=== PATIENT | female | born 1935 | race Hispanic/Latino ===

== ENCOUNTER 2017-03-13 12:23 | Observation (INO) | payer MEDICARE, MEDICAID ==
--- NOTE | 2017-03-13 13:04 | ED PDOC ---
Arrival/HPI - General Chief Complaint: Dizziness/Lightheaded Time Seen by Provider: 03/13/17 12:42 Historian: Family (Daughter) - History of Present Illness Narrative History of Present Illness (Text): 03/13/17 12:50 A 81 year old female, whose past medical history includes spinal stenosis, fibromyalgia, chronic back pain and baseline dementia, was brought into the emergency department by daughter complaining of worsening dizziness. Daughter reports patient called her this morning complaining of worsening back pain and dizziness. Daughter reports patient is more unsteady on her feet when ambulating and notes she is having difficulty finding her words. Daughter denies any loss of consciousness, fever, vomiting, chest pain or any other complaints. PMD: Dr. Hooper Time/Duration: Other (this morning) Symptom Course: Unchanged Quality: Other Context: Home Past Medical History - Provider Review Nursing Documentation Reviewed: Yes - Infectious Disease Hx of Infectious Diseases: None - Cardiac Hx Cardiac Disorders: Yes Hx Hypertension: Yes - Pulmonary Hx Respiratory Disorders: Yes (CHRONIC COUGH) - Neurological Hx Neurological Disorder: Yes (FIBROMYALGIA) HX Cerebrovascular Accident: Yes (Mild per family 2 years ago) Hx Dementia: Yes Hx Dizziness: Yes - HEENT Hx HEENT Disorder: Yes (uses glasses) - Renal Hx Renal Disorder: No - Endocrine/Metabolic Hx Endocrine Disorders: Yes Hx Hypothyroidism: Yes - Hematological/Oncological Hx Blood Disorders: No - Integumentary Hx Dermatological Disorder: No - Musculoskeletal/Rheumatological Hx Falls: Yes (unsteady on feet per family) - Gastrointestinal Hx Gastrointestinal Disorders: Yes Hx Diverticulitis: Yes Hx Gastroesophageal Reflux: Yes Other/Comment: intestinal blockage with surgery - Genitourinary/Gynecological Hx Genitourinary Disorders: No - Psychiatric Hx Psychophysiologic Disorder: Yes Hx Depression: Yes Hx Substance Use: No - Surgical History Hx Appendectomy: Yes Hx Cholecystectomy: Yes Hx Hysterectomy: Yes Other/Comment: Part of colon removed after blockage - Anesthesia Hx Anesthesia: Yes Hx Anesthesia Reactions: No Hx Malignant Hyperthermia: No - Suicidal Assessment Feels Threatened In Home Enviroment: No Family/Social History - Physician Review Nursing Documentation Reviewed: Yes Family/Social History: No Known Family HX Smoking Status: Former Smoker Hx Alcohol Use: No Hx Substance Use: No Allergies/Home Meds Allergies/Adverse Reactions: Allergies levofloxacin [From Levaquin] Allergy (Verified 09/27/16 18:40) RASH Penicillins Allergy (Verified 03/13/17 12:40) ITCHING aspirin Adverse Reaction (Verified 03/13/17 12:40) VOMITING Home Medications: Home Meds Medication Instructions Recorded Confirmed Pantoprazole Sodium [Protonix] 40 mg PO DAILY 01/01/15 03/13/17 Aspirin [Aspirin Chewable] 81 mg PO DAILY 09/27/16 03/13/17 Atorvastatin [Lipitor] 20 mg PO DAILY 09/27/16 03/13/17 Levothyroxine [Synthroid] 0.088 mg PO DAILY 09/27/16 03/13/17 Memantine [Namenda] 10 mg PO BID 09/27/16 03/13/17 Metoprolol Tartrate [Lopressor] 25 mg PO BID 09/27/16 03/13/17 Solifenacin Succinate [Vesicare] 5 mg PO DAILY 09/27/16 03/13/17 Carbidopa/Levodopa 1 each PO TID 03/13/17 03/13/17 [Carbidopa-Levodopa 25-100 Tab] Cholecalciferol (Vitamin D3) 1 cap PO DAILY 03/13/17 03/13/17 [Vitamin D3] Donepezil [Aricept] 10 mg PO DAILY 03/13/17 03/13/17 Review of Systems - Review of Systems Systems not reviewed;Unavailable: Dementia Physical Exam Vital Signs Reviewed: Yes Vital Signs Temp Pulse Resp BP Pulse Ox 03/13/17 15:59 97.8 F 56 L 18 130/51 L 97 03/13/17 14:00 58 L 18 129/80 97 03/13/17 12:41 97.9 F 55 L 19 144/78 97 Temperature: Afebrile Blood Pressure: Normal Pulse: Bradycardic Respiratory Rate: Normal Appearance: Positive for: Well-Appearing, Non-Toxic, Comfortable Pain Distress: None Mental Status: Positive for: other (Alert and oriented times person) Finger Stick Blood Glucose: 131 - Systems Exam Head: Present: Atraumatic, Normocephalic Pupils: Present: PERRL Extroacular Muscles: Present: EOMI Conjunctiva: Present: Normal Ears: Present: Normal, NORMAL TM, Normal Canal. No: Erythema, TM Bulging, Fluid , TM Perf Mouth: Present: Moist Mucous Membranes Pharnyx: No: ERYTHEMA, EXUDATE, TONSILS ENLARGED Neck: Present: Normal Range of Motion Respiratory/Chest: Present: Clear to Auscultation, Good Air Exchange. No: Respiratory Distress, Accessory Muscle Use Cardiovascular: Present: Regular Rate and Rhythm, Normal S1, S2. No: Murmurs Abdomen: Present: Normal Bowel Sounds. No: Tenderness, Distention, Peritoneal Signs Back: Present: Normal Inspection Upper Extremity: Present: Normal Inspection. No: Cyanosis, Edema Lower Extremity: Present: Normal Inspection. No: Edema Neurological: Present: GCS=15, CN II-XII Intact, Gait Normal (Unsteady Gait) Skin: Present: Warm, Dry, Normal Color. No: Rashes Psychiatric: Present: Alert. No: Oriented x 3 Medical Decision Making ED Course and Treatment: 03/13/17 12:50 Impression: A 81 year old female brought in by daughter for worsening dizziness. Daughter notes unsteady gait and difficulty finding words. Flucuates between AAOx1 and AAox0 Differential Diagnosis included but are not limited to: Rule out infection, Evaluated for CVA Plan: -- Head CT -- Chest xray -- EKG -- Labs -- Urinalysis -- Aspirin after CT negative for bleed, Meclizine -- Reassess and disposition Prior Visits: Notes and results from previous visits were reviewed. Patient last seen in the ED on 09/27/16 and hospitalized for chest pain. Progress Notes: EKG shows NSR at [address]-segment elevations, normal intervals. Interpreted by me. Report Date : 03/13/2017 13:57:50 PROCEDURE: CT HEAD WITHOUT CONTRAST. Dictator : Rogerio Solitario MD IMPRESSION: No intracranial mass, hemorrhage or evidence of acute infarct. Age- appropriate involutional change. Mild nonspecific right mastoid effusion. Report Date : 03/13/2017 14:01:59 Procedure: Chest xray Dictator : Cabrera Guallpa MD IMPRESSION: No active disease. 03/13/17 14:15 UA shows small leukocytes but otherwise normal. WBC WNL. UCx sent. Labs grossly normal. Case discussed with Dr. Wallace, covering for Dr. Hooper, who agrees with plan to admit patient to telemetry observation for persistent dizziness. Requesting neuro consult. Daughter Yoly Ferris can be reached at [phone] - Lab Interpretations Lab Results: 03/13/17 13:10 03/13/17 13:10 Lab Results 03/13/17 13:10: Sodium 139, Potassium 3.9, Chloride 100, Carbon Dioxide 29, Anion Gap 14, BUN 10, Creatinine 0.6, Est GFR ( Amer) > 60, Est GFR (Non- Af Amer) > 60, Random Glucose 109, Calcium 9.0, Phosphorus 3.8, Magnesium 1.6 L , Total Bilirubin 0.8, AST 20, ALT 16, Alkaline Phosphatase 76, Total Creatine Kinase 29 L, Troponin I < 0.01, Total Protein 6.6, Albumin 4.0, Globulin 2.6, Albumin/Globulin Ratio 1.5, Lipase 31 03/13/17 13:10: WBC 7.8, RBC 4.36, Hgb 13.5, Hct 40.2, MCV 92.2, MCH 31.0, MCHC 33.6, RDW 12.7, Plt Count 247, MPV 9.9, Gran % 47.3 L, Lymph % (Auto) 41.0 H, [place] % (Auto) 9.3 H, Eos % (Auto) 1.9, Baso % (Auto) 0.5, Gran # 3.66, Lymph # 3.2, [place] # 0.7 H, Eos # 0.2, Baso # 0.04 I have reviewed the lab results: Yes - RAD Interpretation Radiology Orders: 03/13/17 12:51 HEAD W/O CONTRAST [CT] Stat CHEST PORTABLE [RAD] Stat - Medication Orders Current Medication Orders: Discontinued Medications Aspirin (Aspirin Chewable) 324 mg PO STAT STA Stop: 03/13/17 14:16 Meclizine HCl (Antivert) 25 mg PO STAT STA Stop: 03/13/17 14:14 - Scribe Statement The provider has reviewed the documentation as recorded by the Mauro Parrish Provider Scribe Attestation: All medical record entries made by the Scribe were at my direction and personally dictated by me. I have reviewed the chart and agree that the record accurately reflects my personal performance of the history, physical exam, medical decision making, and the department course for this patient. I have also personally directed, reviewed, and agree with the discharge instructions and disposition. Disposition/Present on Arrival - Present on Arrival Any Indicators Present on Arrival: No History of DVT/PE: No History of Uncontrolled Diabetes: No Urinary Catheter: No History of Decub. Ulcer: No History Surgical Site Infection Following: None - Disposition Have Diagnosis and Disposition been Completed?: Yes Diagnosis: Dizziness, Dementia Disposition: HOSPITALIZED Disposition Time: 14:15 Patient Plan: Observation Condition: FAIR
[2017-03-13 13:35] LABS: BASO # 0.04 K/mm3 (0.0-2.0); BASO % 0.5 % (0.0-3.0); EOS # 0.2 (0.0-0.7); EOS % 1.9 % (1.5-5.0); GRAN # 3.66 (1.4-6.5); GRAN % 47.3 % (50.0-68.0); HEMOGLOBIN 13.5 g/dL (12.0-16.0); LYMPH # 3.2 (1.2-3.4); MEAN CELL VOLUME 92.2 fl (80.0-105.0); MEAN CORPUSCULAR HGB CONC 33.6 g/dl (31.0-37.0); MEAN PLATELET VOLUME 9.9 fl (7.0-11.0); MONO # 0.7 (0.1-0.6); MONO % 9.3 % (1.0-6.0); PLATELET COUNT 247 10^3/uL (120.0-450.0); RBC 4.36 10^6/uL (3.5-6.1); RED CELL DISTRIBUTION WIDTH 12.7 % (11.5-14.5); WHITE BLOOD COUNT 7.8 10^3/ul (4.5-11.0)
[2017-03-13 13:45] LABS: ALB/GLOB RATIO 1.5 (1.1-1.8); ALT/SGPT 16 U/L (7-56); AST/SGOT 20 U/L (15-39); BLOOD UREA NITROGEN 10 mg/dL (7-21); GFR AFRICAN-AMERICAN > 60; GFR NON-AFRICAN AMERICAN > 60; LIPASE 31 U/L (23-300); MAGNESIUM 1.6 mg/dL (1.7-2.2)
[2017-03-13 13:54] LABS: TROPONIN I < 0.01 ng/mL
--- NOTE | 2017-03-13 13:59 | CT ---
PROCEDURE: CT HEAD WITHOUT CONTRAST. HISTORY: dizziness COMPARISON: None available. TECHNIQUE: Axial computed tomography images were obtained through the head/brain without intravenous contrast. Radiation dose: Total exam DLP = 700.93 mGy-cm. This CT exam was performed using one or more of the following dose reduction techniques: Automated exposure control, adjustment of the mA and/or kV according to patient size, and/or use of iterative reconstruction technique. FINDINGS: HEMORRHAGE: No intracranial hemorrhage. BRAIN: No mass effect or edema. Mild age-appropriate diffuse cerebral atrophy. Moderate periventricular white matter lucency with patchy and confluent deep and subcortical white matter lucency bilaterally, consistent with age related microvascular ischemic change. No evidence of acute infarct. VENTRICLES: Unremarkable. No hydrocephalus. CALVARIUM: Unremarkable. PARANASAL SINUSES: Unremarkable as visualized. No significant inflammatory changes. MASTOID AIR CELLS: Mild right mastoid effusion, nonspecific. OTHER FINDINGS: None. IMPRESSION: No intracranial mass, hemorrhage or evidence of acute infarct. Age-appropriate involutional change. Mild nonspecific right mastoid effusion.
--- NOTE | 2017-03-13 14:04 | RAD ---
HISTORY: back pain COMPARISON: 09/27/2016 FINDINGS: LUNGS: No active pulmonary disease. PLEURA: No significant pleural effusion identified, no pneumothorax apparent. CARDIOVASCULAR: Normal. OSSEOUS STRUCTURES: No significant abnormalities. VISUALIZED UPPER ABDOMEN: Normal. OTHER FINDINGS: None. IMPRESSION: No active disease.
[2017-03-13 15:52] LABS: URINE BILIRUBIN NEGATIVE (NEGATIVE); URINE BLOOD NEGATIVE (NEGATIVE); URINE GLUCOSE (UA) NEGATIVE (NEGATIVE); URINE LEUKOCYTE ESTERASE SMALL Leu/uL (NEGATIVE); URINE NITRATE NEGATIVE (NEGATIVE); URINE PROTEIN NEGATIVE mg/dL (<30 mg/dL); URINE UROBILINOGEN 0.2 E.U./dL (<1 E.U./dL)
[2017-03-13 15:56] LABS: URINE APPEARANCE SL CLOUDY (CLEAR); URINE COLOR YELLOW (YELLOW)
[2017-03-13 16:03] LABS: URINE EPITHELIAL CELLS 0 - 2 /hpf (0-5); URINE RBC NEGATIVE /hpf (0-2); URINE WBC 0 - 2 /hpf (0-6)
--- NOTE | 2017-03-13 16:22 | CARD ---
APPROVED REPORT EKG Measurement Heart [id number] <Conclusion> Normal sinus rhythm Normal ECG
[2017-03-13] MEDS: Magnesium Oxide 400 mg Tab UD PO SCH (17:46)
--- NOTE | 2017-03-13 18:58 | CON ---
CHIEF COMPLAINT: Dizziness. HISTORY OF PRESENT ILLNESS: This is an 81-year-old woman with history of spinal stenosis with history of parkinsonism diagnosed by Dr. Antonina Root back in September of 2016 and placed on Sinemet 25/100 p.o. t.i.d., history of an EEG done in September of 2016 which was normal, history of an MRI done on 09/29/2016, which showed no acute cranial abnormality, just chronic ischemic changes, history of chronic back pain, and dementia on Aricept and Namenda, was brought in because the patient was complaining of dizziness in terms of spinning sensation of room, especially when getting from a sitting to standing position as well as turning her head in right or left direction. Her dizziness is much less today since she has been stabilized in the ER. Her CAT scan of the head showed no acute intracranial abnormality. She is unsteady on her feet with some parkinsonism features and does have difficulty in ambulating at times. She definitely has poor attention and slow thought process, does not know the month or year, knows the president of [facility] but cannot recall his name. REVIEW OF SYSTEMS: A 14-point review of systems is negative except as per the HPI. ALLERGIES: LEVOFLOXACIN, PENICILLIN, AND ASPIRIN. MEDICATIONS: Reviewed by the nurse per reconciliation sheet. PAST MEDICAL HISTORY: Parkinsonism diagnosed in September 2016, on Sinemet; chronic back pain; dementia; hypertension. FAMILY HISTORY: Noncontributory. SOCIAL HISTORY: No illicit drug use, smoking, or EtOH abuse. PHYSICAL EXAMINATION: VITAL SIGNS: Temperature of 97.8, pulse rate 56, blood pressure of 130/51, respiratory rate of 18, oxygen saturation 97% via room air. GENERAL: The patient is sitting up in bed, in no acute distress. HEENT: Head is atraumatic and normocephalic. PERRLA. Extraocular muscles intact. NECK: Supple. No JVD. No adenopathy noted. LUNGS: Clear to auscultation. No adventitious sounds. HEART: S1 and S2, normal rate and rhythm. No murmurs, rubs, or gallops. ABDOMEN: Soft, nontender, nondistended. Bowel sounds present. EXTREMITIES: No clubbing, no cyanosis. Peripheral pulses 2+ felt bilaterally. NEUROLOGIC: The patient has a flat affect, is alert, oriented to person and place, not much to month or year. Recall after 5 minutes is 0 out of 3. Poor attention span, slow thought process. Cranial nerves II through XII intact. Motor exam: Has increased tone throughout. Very, very limited cogwheel of the left wrist compared to the right. Sensory exam: Light touch, pinprick, proprioception, vibration intact. DTRs are 1+ throughout and absent at the ankles. Coordination: [id number] intact. Gait is deferred for now. LABORATORY DATA: Sodium is 139, potassium 3.9, chloride of 100, carbon dioxide of 29, BUN of 10, creatinine 0.6, random glucose of 109. ASSESSMENT AND PLAN: This is an 81-year-old with history of hypothyroidism, history of hypertension, history of depression, history of unsteady gait, history of parkinsonism diagnosed in September 2016, with history of an MRI brain done in September 2016, which showed no acute intracranial abnormality, just chronic ischemic changes, history of chronic back pain and dementia, came with dizziness, dizziness feels combination of lightheadedness with a component of spinning sensation of the room. Her dizziness seems more like a positional vertigo superimposed on underlying deconditioned state from parkinsonism. At this time, recommend: 1. Adequate hydration throughout the day. 2. Keep systolic blood pressure above 130. 3. Monitor electrolytes and replace accordingly. 4. PT therapy to assess her gait as well as possible vestibular therapy for positional vertigo. 5. Continue current present medical management. 6. Continue with her underlying Sinemet 1 tab p.o. t.i.d. 25/100 for underling parkinsonism and continue with the Aricept and Namenda for underlying dementia Parkinson's type. At this time, she is on aspirin and Lipitor for stroke prevention and continue on current present medical management. She is neurologically stable. Thank you for this consult. Tenzin Hammond MD
[2017-03-13 22:20] VITALS: BMI 40.3
[2017-03-13] MEDS ORDERED: Pneumococcal 23-Valent Vaccine IM ONE (22:20)
[2017-03-14 01:07] VITALS: RESP 20
[2017-03-14] MEDS ORDERED: Pantoprazole 40 mg EC Tab PO SCH (07:30)
[2017-03-14 08:13] VITALS: BP 172/64; TEMP 98; O2SAT 94
[2017-03-14] MEDS: Magnesium Oxide 400 mg Tab UD PO SCH (09:07)
[2017-03-14] MEDS ORDERED: Levothyroxine 88 MCG TAB PO SCH (10:00)
[2017-03-14 14:37] VITALS: PULSE 48
--- NOTE | 2017-03-15 07:14 | HP ---
CHIEF COMPLAINT AND HISTORY OF PRESENT ILLNESS: This is an 81-year-old female who is coming into the hospital with complaints of dizziness. The patient had a history of spinal stenosis, fibromyalgia, chronic back pain. She was brought in by her daughter. The patient denies any loss of consciousness, she did have difficulty with remembering, her dementia is severe according to the daughter. She has no fevers or chills. She is able to walk to the bathroom with some assistants. She does not remember why she is in the hospital. She does not know the date. REVIEW OF SYSTEMS: All review of systems are within normal limits, except what was mentioned. ALLERGIES: LEVAQUIN, PENICILLIN AND *------*. HOME MEDICATIONS: Protonix, aspirin, Lipitor, Synthroid, Namenda, Lopressor, VESIcare, carbidopa, levodopa, vitamin D3, and Aricept. PAST MEDICAL HISTORY: *------* hypothyroidism, DJD, with herniated disc in back, dementia Alzheimer's type, diverticulosis, hypertension, hypothyroidism, dyslipidemia and chronic cough. PAST SURGICAL HISTORY: 1. Cholecystectomy. 2. Total abdominal hysterectomy and salpingo-oophorectomy. 3. Appendectomy. 4. Bowel obstruction with adhesiolysis. SOCIAL HISTORY: The patient does not smoke or drink. She lives with her daughter. FAMILY HISTORY: Noncontributory. PHYSICAL EXAMINATION: VITAL SIGNS: Temperature of 97.8, pulse 56, blood pressure is 130/61 and respiratory rate of 18. GENERAL: The patient lying in bed, uncomfortable, and in no acute distress. HEENT: Atraumatic and normocephalic. Anicteric sclerae. Moist mucosa. [place] conjunctivae. No oral lesions. NECK: No JVD, anterior and posterior adenopathy, thyromegaly, or bruits. CARDIOVASCULAR: S1 and S2 regular. No murmur, rubs, or gallop. LUNGS: Clear to auscultation bilaterally. No wheezes, rales, or rhonchi. ABDOMEN: Bowel sounds are positive. Soft, nontender and nondistended. No hepatosplenomegaly. No rebound and no guarding. EXTREMITIES: No cyanosis, clubbing, or edema. NEUROLOGIC: No facial asymmetry. Tongue is midline. No vulva deviation. Power is 5/5 upper extremity and lower extremity. Sensation intact in upper extremity and lower extremity. PSYCHIATRIC: She is awake, alert and oriented x1. Poor insight. Normal affect. GENITOURINARY: No CVA tenderness. VASCULAR: 2+ pulses in the carotid pulses and pedal pulses. SKIN: No erythema or nodules. SPINE: Shows normal curvature. EXTREMITIES: No cyanosis and clubbing, no edema. LABORATORY DATA: White count is 7.8 and hemoglobin 13.5. Sodium is 139, potassium is 3.9. Troponin is 0.01. Urine shows; nitrates are negative, bilirubin is negative and ketones are negative. CT of the head done shows no intracranial mass. Mild nonspecific right mastoid effusion. Chest x-ray is no active disease. ASSESSMENT: 1. Dizziness, resolved. 2. Hypertension. 3. Dementia Alzheimer's type. 4. Hypothyroidism. 5. Dyslipidemia. PLAN: The patient is currently comfortable. She was admitted for further evaluation, she was seen by Dr. Hammond, he had okayed for her to be discharged. The patient was given aspirin and Antivert. The patient is on a heart-healthy diet. I did speak to the patient's daughter at length to give her an update on the patient's diagnosis and plan of care. The patient is on Sinemet as well, this will be continued. The patient had EKG that shows normal sinus rhythm with a heart rate of 62. CONDITION: Stable. ACTIVITY: Increased as tolerated. Followup with primary care doctor in 1 to 2 weeks and also followup with the neurology. Tommie Wallace MD
== END 2017-03-14 16:32 | disposition home or self-care (01) ==
LOC: ED 12:23 → ERH 14:14 → 3RNO 16:30
PROVIDERS: ADMIT Internal Medicine Nephrology; ATTEND Internal Medicine Nephrology
DX: R42 Dizziness and giddiness (principal); M79.7 Fibromyalgia; M48.00 Spinal stenosis, site unspecified; G89.29 Other chronic pain; I10 Essential (primary) hypertension; F02.80 Dementia in other diseases classified elsewhere, unspecified severity, without behavioral disturbance, psychotic disturbance, mood disturbance, and anxiety; G30.9 Alzheimer's disease, unspecified; E78.5 Hyperlipidemia, unspecified; E03.9 Hypothyroidism, unspecified; G20 Parkinson's disease; R26.2 Difficulty in walking, not elsewhere classified; Z90.710 Acquired absence of both cervix and uterus; Z90.49 Acquired absence of other specified parts of digestive tract
CPT/HCPCS: 70450; 71010; 80053; 81001; 82550; 83690; 83735; 84100; 84484; 85025; 87086; 93005; 99285; G0378

== ENCOUNTER 2018-02-12 15:39 | Inpatient (IN) | payer MEDICARE, MEDICAID ==
[2018-02-12 16:19] VITALS: BMI 36.1
--- NOTE | 2018-02-12 17:19 | ED PDOC ---
Arrival/HPI - General Chief Complaint: Altered Mental Status Time Seen by Provider: 02/12/18 16:23 Historian: Patient, Other (daughter) - History of Present Illness Narrative History of Present Illness (Text): 02/12/18 17:16 Patient is an 82 yo female past medical history of dementia as well as parkinson 's presents to the Emergency Department with history of "deterioration" in her mental status "since October". Daughter is with patient at bedside and provides history. She described that the patient appears "shakier" over past several months. She also described that the patient has not been ambulating very well and is more bedbound and requires more assistance to ambulate. Daughter also states that she appears to be urinating more frequently and has been at times incontinent over the past week. No noted fevers. No vomiting. No expression of pain. No injury or trauma noted or reported. Patient last night "was found laying on the ground". Daughter states that she did not appear injured although "was too weak to get up" and had to be pulled back up. No known loss of conciousness, daughter believes she was only on ground for "10-15 minutes". 02/12/18 22:01 Past Medical History - Infectious Disease Hx of Infectious Diseases: None - Cardiac Hx Cardiac Disorders: Yes (mi) Hx Hypertension: Yes - Pulmonary Hx Respiratory Disorders: Yes (CHRONIC COUGH) - Neurological Hx Neurological Disorder: Yes (FIBROMYALGIA) HX Cerebrovascular Accident: Yes (Mild per family 2 years ago) Hx Dementia: Yes (forgetful) Hx Dizziness: Yes - HEENT Hx HEENT Disorder: Yes (uses glasses) - Renal Hx Renal Disorder: No - Endocrine/Metabolic Hx Endocrine Disorders: Yes Hx Hypothyroidism: Yes - Hematological/Oncological Hx Blood Disorders: No - Integumentary Hx Dermatological Disorder: No - Musculoskeletal/Rheumatological Hx Musculoskeletal Disorders: Yes Hx Falls: Yes (past) - Gastrointestinal Hx Gastrointestinal Disorders: Yes Hx Diverticulitis: Yes Hx Gastroesophageal Reflux: Yes Other/Comment: intestinal blockage with surgery, part of colon removed - Genitourinary/Gynecological Hx Genitourinary Disorders: No - Psychiatric Hx Psychophysiologic Disorder: Yes Hx Depression: Yes Hx Substance Use: No - Surgical History Hx Appendectomy: Yes Hx Cholecystectomy: Yes Hx Hysterectomy: Yes Other/Comment: Part of colon removed after blockage - Anesthesia Hx Anesthesia: Yes Hx Anesthesia Reactions: No Hx Malignant Hyperthermia: No - Suicidal Assessment Feels Threatened In Home Enviroment: No Family/Social History Family/Social History: Unknown Family HX Smoking Status: Former Smoker Hx Alcohol Use: No Hx Substance Use: No Allergies/Home Meds Allergies/Adverse Reactions: Allergies levofloxacin [From Levaquin] Allergy (Verified 02/12/18 16:18) RASH Penicillins Allergy (Verified 02/12/18 16:18) ITCHING aspirin Adverse Reaction (Verified 02/12/18 16:18) VOMITING Home Medications: Home Meds Medication Instructions Recorded Confirmed Aspirin [Aspirin Chewable] 81 mg PO DAILY 09/27/16 02/12/18 Atorvastatin [Lipitor] 20 mg PO DAILY 09/27/16 02/12/18 Levothyroxine [Synthroid] 0.088 mg PO DAILY 09/27/16 02/12/18 Memantine [Namenda] 10 mg PO BID 09/27/16 02/12/18 Metoprolol Tartrate [Lopressor] 25 mg PO BID 09/27/16 02/12/18 Solifenacin Succinate [Vesicare] 5 mg PO DAILY 09/27/16 02/12/18 Carbidopa/Levodopa 1 each PO TID 03/13/17 02/12/18 [Carbidopa-Levodopa 25-100 Tab] Donepezil [Aricept] 10 mg PO DAILY 03/13/17 02/12/18 Melatonin 10 mg PO HS 02/12/18 02/12/18 Review of Systems - Review of Systems Systems not reviewed;Unavailable: Dementia Constitutional: absent: Fevers Eyes: absent: Vision Changes Respiratory: absent: SOB Cardiovascular: absent: Chest Pain Gastrointestinal: absent: Abdominal Pain Genitourinary Female: Frequency. absent: Hematuria Musculoskeletal: Back Pain Skin: absent: Rash Neurological: Other (tremors). absent: Focal Weakness Hemo/Lymphatic: absent: Easy Bleeding Physical Exam Vital Signs Reviewed: Yes Vital Signs Temp Pulse Resp BP Pulse Ox 02/12/18 21:23 66 148/81 02/12/18 21:11 62 18 139/63 97 02/12/18 18:29 57 L 17 97 02/12/18 16:12 98.1 F 55 L 19 130/47 L 95 Temperature: Afebrile Appearance: Positive for: Non-Toxic Mental Status: Positive for: Confused - Systems Exam Head: Present: Atraumatic Extroacular Muscles: Present: EOMI Mouth: Present: Dry Pharnyx: No: ERYTHEMA Neck: No: Meningeal Signs Respiratory/Chest: Present: Clear to Auscultation. No: Respiratory Distress Cardiovascular: Present: Murmurs, Bradycardic Abdomen: No: Tenderness Back: Present: Paraspinal Tenderness Upper Extremity: No: Edema Lower Extremity: Present: Neurovascularly Intact, Other (no pain with range of motion of hip, knee and ankle). No: Edema Neurological: Present: Other (no slurred speech, moves all four extremities with equal strength). No: Memory Normal Skin: Present: Warm Psychiatric: Present: Alert. No: Normal Insight, Normal Concentration Medical Decision Making ED Course and Treatment: Patient's history supplemented by daughter. She reports gradual deterioration in mental status and activity level "since October". Yesterday patient was found laying on the floor. Currently no signs of unstable trauma noted. No respiratory distress. Current exam NOT consistent with sepsis. UA unremarkable. Abdomen soft and nontender. Rectal exam no bleeding or melena. Vital signs stable. Bradycardic, although no chest pain or sob and stable BP. 02/12/2018 17:24 Chest X-ray IMPRESSION: No active disease. Dictator: Daryl Simpson MD 02/12/18 22:05 Given deterioration in mental status, possible syncope yesterday, will admit to remote telemetry for monitoring and serial exams. Daughter updated with treatment plan. Patient accepted by Dr. Roby Wallace to his service. 02/12/18 22:52 CT reading reviewed. Patient with no facial bony tenderness, patient with no mastoid tenderness. No ear canal edema or drainage noted. EXAM: CT Head Without Intravenous Contrast Dictated and Authenticated by: Gabe Diehl MD 02/12/2018 10:12 PM IMPRESSION: No evidence of acute intracranial hemorrhage. Opacification of the right mastoids. Partial opacification of the left mastoids. Correlate for mastoiditis. - Lab Interpretations Microbiology Results: Microbiology Results 02/12/18 20:15 Urine Urine Culture - Final No Growth (<1,000 CFU/ML) Lab Results: 02/12/18 17:12 02/12/18 17:12 Lab Results 02/12/18 20:15: Urine Color Yellow, Urine Appearance Clear, Urine pH 6.0, Ur Specific [place] 1.015, Urine Protein Negative, Urine Glucose (UA) Negative, Urine Ketones Negative, Urine Blood Negative, Urine Nitrate Negative, Urine Bilirubin Negative, Urine Urobilinogen 0.2, Ur Leukocyte Esterase Trace H, Urine RBC Negative, Urine WBC 0 - 2, Ur Epithelial Cells 0 - 2, Urine Bacteria None, Hyaline Casts 0 - 2 02/12/18 17:12: Sodium 136, Potassium 4.5, Chloride 98, Carbon Dioxide 27, Anion Gap 16, BUN 16, Creatinine 0.7, Est GFR ( Amer) > 60, Est GFR (Non- Af Amer) > 60, Random Glucose 112 H, Calcium 9.1, Total Bilirubin 0.6, AST 17, ALT 22, Alkaline Phosphatase 90, Lactate Dehydrogenase 404, Total Creatine Kinase < 20 L, Troponin I < 0.01, Total Protein 6.6, Albumin 3.8, Globulin 2.8, Albumin/Globulin Ratio 1.3 02/12/18 17:12: PT 12.9 H, INR 1.13 H, APTT 30.1 02/12/18 17:12: WBC 9.3, RBC 4.43, Hgb 13.9, Hct 40.5, MCV 91.4, MCH 31.4, MCHC 34.3, RDW 12.7, Plt Count 317, MPV 9.2, Gran % 58.3, Lymph % (Auto) 28.2, [place] % (Auto) 10.5 H, Eos % (Auto) 2.7, Baso % (Auto) 0.3, Gran # 5.40, Lymph # (Auto ) 2.6, [place] # (Auto) 1.0 H, Eos # (Auto) 0.3, Baso # (Auto) 0.03 02/12/18 16:28: POC Glucose (mg/dL) 145 H - RAD Interpretation Radiology Orders: 02/12/18 16:48 CHEST PORTABLE [RAD] Stat 02/12/18 20:06 HEAD W/O CONTRAST [CT] Stat - EKG Interpretation EKG Interpretation (Text): EKG at 16:31 sinus bradycardia rate of 54 Interpreted by ED Physician: Yes Type: 12 lead EKG - Medication Orders Current Medication Orders: Discontinued Medications Alprazolam (Xanax) 0.5 mg PO Q6H PRN; Protocol PRN Reason: Anxiety Last Admin: 02/14/18 09:43 Dose: 0.5 mg Behavioural Document 02/14/18 09:43 NEETU (Rec: 02/14/18 09:43 [facility]) Maintenance Maintenance Dose Yes Nonmedicinal Nonmedicinal Interventions Redirect Therapeutic Communication Behavior Behavior for Medication: Anxiety Re-Assess: Reassess Psych Meds Document 02/14/18 10:43 NEETU (Rec: 02/14/18 11:11 TESHASV PURCHASING2) Reassess Psych Med Effective Aspirin (Aspirin Chewable) 81 mg PO DAILY [facility] Last Admin: 02/15/18 09:30 Dose: 81 mg Atorvastatin Calcium (Lipitor) 20 mg PO HS [facility] Last Admin: 02/14/18 22:03 Dose: 20 mg Carbidopa/Levodopa (Sinemet) 1 tab PO TID [facility] Last Admin: 02/15/18 14:16 Dose: 1 tab Donepezil HCl (Aricept) 10 mg PO DAILY [facility] Last Admin: 02/15/18 09:30 Dose: 10 mg Enoxaparin Sodium (Lovenox) 40 mg SC DAILY [facility] PRN Reason: Protocol Last Admin: 02/15/18 09:31 Dose: 40 mg Subcutaneous Administrations Document 02/15/18 09:31 NEETU (Rec: 02/15/18 09:31 [facility]) Injection Site MAR Injection Site Right Abdomen Charges for Administration # of Subcutaneous Administrations 1 Levothyroxine Sodium (Synthroid) 88 mcg PO DAILY [facility] Last Admin: 02/15/18 09:30 Dose: 88 mcg Memantine (Namenda) 10 mg PO BID [facility] Last Admin: 02/15/18 09:31 Dose: 10 mg Metoprolol Tartrate (Lopressor) 25 mg PO BID [facility] Last Admin: 02/15/18 09:31 Dose: 25 mg MAR Pulse and Blood Pressure Document 02/15/18 09:31 NEETU (Rec: 02/15/18 09:31 [facility] Pulse Pulse Rate (60-90) 60 Blood Pressure Blood Pressure (100/60-150/90) 144/68 Polyethylene Glycol (Miralax) 17 gm PO DAILY [facility] Last Admin: 02/15/18 09:31 Dose: 17 gm Pramipexole Dihydrochloride (Mirapex) 0.5 mg PO DAILY [facility] Last Admin: 02/15/18 09:30 Dose: 0.5 mg Disposition/Present on Arrival - Present on Arrival Any Indicators Present on Arrival: No History of DVT/PE: No History of Uncontrolled Diabetes: No Urinary Catheter: No History of Decub. Ulcer: No History Surgical Site Infection Following: None - Disposition Have Diagnosis and Disposition been Completed?: Yes Diagnosis: Dementia, Near syncope Disposition: HOSPITALIZED Disposition Time: 20:00 Patient Plan: Admission, Telemetry Condition: FAIR
--- NOTE | 2018-02-12 17:25 | RAD ---
Date of service: 02/12/2018 HISTORY: ams COMPARISON: Chest radiograph dated 03/13/2017. FINDINGS: LUNGS: No active pulmonary disease. PLEURA: No significant pleural effusion identified, no pneumothorax apparent. CARDIOVASCULAR: Atherosclerotic aortic calcifications. Cardiomediastinal silhouette stably prominent. OSSEOUS STRUCTURES: Unchanged. VISUALIZED UPPER ABDOMEN: Right upper quadrant surgical clips. OTHER FINDINGS: None. IMPRESSION: No active disease.
[2018-02-12 17:29] LABS: BASO # 0.03 K/mm3 (0.0-2.0); BASO % 0.3 % (0.0-3.0); EOS # 0.3 (0.0-0.7); EOS % 2.7 % (1.5-5.0); GRAN # 5.4 (1.4-6.5); GRAN % 58.3 % (50.0-68.0); HEMOGLOBIN 13.9 g/dL (12.0-16.0); LYMPH # 2.6 (1.2-3.4); LYMPH % 28.2 % (22.0-35.0); MEAN CELL VOLUME 91.4 fl (80.0-105.0); MEAN CORPUSCULAR HEMOGLOBIN 31.4 pg (25.0-35.0); MEAN CORPUSCULAR HGB CONC 34.3 g/dl (31.0-37.0); MEAN PLATELET VOLUME 9.2 fl (7.0-11.0); MONO % 10.5 % (1.0-6.0); RBC 4.43 10^6/uL (3.5-6.1); RED CELL DISTRIBUTION WIDTH 12.7 % (11.5-14.5); WHITE BLOOD COUNT 9.3 10^3/ul (4.5-11.0)
[2018-02-12 17:43] LABS: INR 1.13 (0.93-1.08); PARTIAL THROMBOPLASTIN TIME 30.1 Seconds (25.1-36.5); PROTHROMBIN TIME 12.9 SECONDS (9.4-12.5)
[2018-02-12 17:50] LABS: ALB/GLOB RATIO 1.3 (1.1-1.8); ALBUMIN 3.8 g/dL (3.0-4.8); ALT/SGPT 22 U/L (7-56); AST/SGOT 17 U/L (14-36); BLOOD UREA NITROGEN 16 mg/dL (7-21); CALCIUM 9.1 mg/dL (8.4-10.5); GFR AFRICAN-AMERICAN > 60; GFR NON-AFRICAN AMERICAN > 60
[2018-02-12 17:59] LABS: TROPONIN I < 0.01 ng/mL
[2018-02-12 20:21] LABS: URINE BILIRUBIN NEGATIVE (NEGATIVE); URINE BLOOD NEGATIVE (NEGATIVE); URINE GLUCOSE (UA) NEGATIVE (NEGATIVE); URINE LEUKOCYTE ESTERASE TRACE Leu/uL (NEGATIVE); URINE PROTEIN NEGATIVE mg/dL (<30 mg/dL); URINE UROBILINOGEN 0.2 E.U./dL (<1 E.U./dL)
[2018-02-12 20:24] LABS: URINE COLOR YELLOW (YELLOW)
[2018-02-12 20:25] LABS: URINE APPEARANCE CLEAR (CLEAR)
[2018-02-12 20:38] LABS: URINE EPITHELIAL CELLS 0 - 2 /hpf (0-5); URINE RBC NEGATIVE /hpf (0-2); URINE WBC 0 - 2 /hpf (0-6)
[2018-02-12 20:39] LABS: URINE HYALINE CAST 0 - 2 /hpf
--- NOTE | 2018-02-12 22:08 | CARD ---
APPROVED REPORT Date of service: 02/12/2018 EKG Measurement Heart [id number] <Conclusion> Sinus bradycardia Otherwise normal ECG
--- NOTE | 2018-02-13 07:30 | CT ---
Date of service: 02/12/2018 PROCEDURE: CT HEAD WITHOUT CONTRAST. HISTORY: ams COMPARISON: 03/13/17 TECHNIQUE: Axial computed tomography images were obtained through the head/brain without intravenous contrast. Radiation dose: Total exam DLP = mGy-cm. This CT exam was performed using one or more of the following dose reduction techniques: Automated exposure control, adjustment of the mA and/or kV according to patient size, and/or use of iterative reconstruction technique. FINDINGS: HEMORRHAGE: No intracranial hemorrhage. BRAIN: No mass effect or edema. Extensive chronic periventricular white matter ischemic disease. VENTRICLES: Unremarkable. No hydrocephalus. CALVARIUM: Unremarkable. PARANASAL SINUSES: Unremarkable as visualized. No significant inflammatory changes. MASTOID AIR CELLS: Unremarkable as visualized. No inflammatory changes. OTHER FINDINGS: None. IMPRESSION: No intracranial hemorrhage.
[2018-02-13] MEDS: Levothyroxine 88 MCG TAB PO SCH (09:29)
--- NOTE | 2018-02-13 10:13 | CP.PCM.HP ---
<Leonel French - Last Filed: 02/13/18 10:04> History of Present Illness - History of Present Illness History of Present Illness: Medicine H&P for Dr. Wallace's service - Leanna French PGY3 HPI: Patient is a 82yo female with past medical history of alzheimers dementia, parkinsons, DJD, diverticulosis, hypertension, hypothyroidism and dyslipidemia that presented to [facility] accompanied by her daughter with reports of more profound weakness, difficulty ambulating/bed-bound, and inability to perform her activities of daily living. Per patients daughter, she has required more assistance and has been incontinent. There were no reports of trauma/injury or loss of consciousness. She reports of fevers, chills, nausea, vomiting, chest pain, palpitations, SOB, abdominal pain. 12point ROS as per above otherwise negative PMH: as stated above PSH: cholecystectomy Allergies: levofloxacin, penicillin, aspirin Family Hx: Non-contributory Social Hx: denies tobacco, alcohol and illicit drug use Present on Admission - Present on Admission Any Indicators Present on Admission: No Past Patient History - Infectious Disease Hx of Infectious Diseases: None - Past Social History Smoking Status: Former Smoker - CARDIAC Hx Cardiac Disorders: Yes (mi) Hx Hypertension: Yes - PULMONARY Hx Respiratory Disorders: Yes (CHRONIC COUGH) - NEUROLOGICAL Hx Neurological Disorder: Yes (FIBROMYALGIA) HX Cerebrovascular Accident: Yes (Mild per family 2 years ago) Hx Dementia: Yes (forgetful) Hx Dizziness: Yes - HEENT Hx HEENT Problems: Yes (uses glasses) - RENAL Hx Chronic Kidney Disease: No - ENDOCRINE/METABOLIC Hx Endocrine Disorders: Yes Hx Hypothyroidism: Yes - HEMATOLOGICAL/ONCOLOGICAL Hx Blood Disorders: No - INTEGUMENTARY Hx Dermatological Problems: No - MUSCULOSKELETAL/RHEUMATOLOGICAL Hx Musculoskeletal Disorders: Yes Hx Falls: Yes (past) - GASTROINTESTINAL Hx Gastrointestinal Disorders: Yes Hx Diverticulitis: Yes Hx Gastroesophageal Reflux: Yes Other/Comment: intestinal blockage with surgery, part of colon removed - GENITOURINARY/GYNECOLOGICAL Hx Genitourinary Disorders: No - PSYCHIATRIC Hx Psychophysiologic Disorder: Yes Hx Depression: Yes Hx Substance Use: No - SURGICAL HISTORY Hx Appendectomy: Yes Hx Cholecystectomy: Yes Hx Hysterectomy: Yes Other/Comment: Part of colon removed after blockage - ANESTHESIA Hx Anesthesia: Yes Hx Anesthesia Reactions: No Hx Malignant Hyperthermia: No Meds Allergies/Adverse Reactions: Allergies Allergy/AdvReac Type Severity Reaction Status Date / Time levofloxacin [From Levaquin] Allergy RASH Verified 02/12/18 16:18 Penicillins Allergy ITCHING Verified 02/12/18 16:18 aspirin AdvReac VOMITING Verified 02/12/18 16:18 Physical Exam - Constitutional Appears: No Acute Distress, Confused - Head Exam Head Exam: ATRAUMATIC, NORMAL INSPECTION, NORMOCEPHALIC - Eye Exam Eye Exam: EOMI, PERRL - ENT Exam ENT Exam: Mucous Membranes Moist - Neck Exam Neck exam: Positive for: Normal Inspection - Respiratory Exam Respiratory Exam: Clear to Auscultation Bilateral. absent: Rales, Rhonchi, Wheezes - Cardiovascular Exam Cardiovascular Exam: +S1, +S2. absent: Gallop, JVD, Rubs - GI/Abdominal Exam GI & Abdominal Exam: Soft. absent: Distended, Firm, Guarding, Rebound, Tenderness - Extremities Exam Extremities exam: Positive for: normal inspection - Neurological Exam Neurological exam: Alert Additional comments: oriented only to person - Psychiatric Exam Psychiatric exam: Normal Affect, Normal Mood - Skin Skin Exam: Dry, Intact, Normal Color, Warm Results - Vital Signs Recent Vital Signs: Last Vital Signs Temp 98 F 02/13/18 07:40 Pulse 56 L 02/13/18 09:29 Resp 20 02/13/18 07:40 BP 152/78 H 02/13/18 09:29 Pulse Ox 98 02/13/18 07:40 - Labs Result Diagrams: 02/12/18 17:12 02/12/18 17:12 Assessment & Plan - Assessment and Plan (Free Text) Plan: 82yo female with history of dementia, parkinsons, DJD, hypothyroidism, dyslipidemia presents for weakness, difficulty ambulating, incontinence 1. Alzheimers dementia 2. Parkinsons 3. DJD 4. Dyslipidemia 5. Hypothyroidism -Events at home discussed between her daughter, Erica and Dr. Wallace -Neurology was consulted for evaluation - Dr. Hammond -CT Head was reviewed which revealed opacification of the right and partial left mastoid -CXR revealed no active disease; EKG showed sinus bradycardia with no acute ST- T wave changes -Patient is afebrile, no leukocytosis; UA is negative however cultures are pending -She is on sinemet for parkinsons, memantine for dementia, synthroid for hypothyroidism and lipitor for dyslipidemia -Lovenox for DVT prophylaxis -PT evaluation as she is deconditioned -Case management/Social work evaluation Patient seen and case discussed/reviewed with attending, Dr. Wallace <Tommie Wallace Rosaline - Last Filed: 02/14/18 18:56> Results - Vital Signs Recent Vital Signs: Last Vital Signs Temp 97.8 F 02/14/18 16:27 Pulse 63 02/14/18 17:07 Resp 20 02/14/18 16:27 BP 170/69 H 02/14/18 17:07 Pulse Ox 94 L 02/14/18 16:27 - Labs Result Diagrams: 02/14/18 05:45 02/14/18 05:45 Labs: Laboratory Results - last 24 hr 02/14/18 02/14/18 05:45 05:45 WBC 8.8 RBC 4.57 Hgb 14.2 Hct 41.6 MCV 91.0 MCH 31.1 MCHC 34.1 RDW 12.5 Plt Count 265 MPV 9.1 Gran % 53.0 Lymph % (Auto) 34.5 [place] % (Auto) 8.5 H Eos % (Auto) 3.4 Baso % (Auto) 0.6 Gran # 4.68 Lymph # (Auto) 3.1 [place] # (Auto) 0.8 H Eos # (Auto) 0.3 Baso # (Auto) 0.05 Sodium 135 Potassium 4.4 Chloride 96 L Carbon Dioxide 27 Anion Gap 16 BUN 10 Creatinine 0.6 L Est GFR ( Amer) > 60 Est GFR (Non-Af Amer) > 60 Random Glucose 98 Calcium 8.9 Total Bilirubin 0.8 AST 19 ALT 13 Alkaline Phosphatase 77 Total Protein 6.9 Albumin 4.1 Globulin 2.8 Albumin/Globulin Ratio 1.5 Assessment & Plan - Assessment and Plan (Free Text) Plan: Pt seen and examined yesterday. This is a late entry. I have reviewed the note of the medical office professional instructor and agree with it. I have discussed the assessment and plan with the resident. I have reviewed the patient's labs and medications. Pt with gait dysfunction. She is deconditioned and has difficulty walking. Pt will need Neurology for evaluation. On Lipitor for dyslipidemia. On Mematine for dementia. On Sinemet for Parkinsons.
[2018-02-13] MEDS: Enoxaparin 40 mg Syringe SC SCH (11:05)
--- NOTE | 2018-02-13 20:03 | CON ---
DATE: 02/13/2018 HISTORY OF PRESENT ILLNESS: This is an 82-year-old white female with past medical history of dementia, Parkinson, hypertension, hypothyroidism, hyperlipidemia; came to the hospital because she was found to be weak and difficulty ambulating and also difficulty in doing her daily chores and called to evaluate the patient. PAST MEDICAL HISTORY: Parkinson, dementia, hypertension, hypothyroidism, dyslipidemia. REVIEW OF SYSTEMS: Negative except Parkinson and tremors of the hands. ALLERGIES: TO LEVOFLOXACIN, PENICILLIN, ASPIRIN. SOCIAL HISTORY: Does not smoke, does not drink. PHYSICAL EXAMINATION: HEENT: Normocephalic, atraumatic. NECK: Supple. NEUROLOGIC: Awake, orientated to self and place. Cranial nerves II through XII are tested. Pupils reactive. EOM intact. Visual field full. No facial asymmetry. Tongue midline. Motor examination: Spontaneous movement of the extremities noted and tremors of the hand also noted. Gait deferred. ASSESSMENT AND PLAN: Dementia, Alzheimer type; Parkinson disease; and tremors. So, we will add Mirapex 0.5 mg p.o. daily. We will follow up. Isrrael Hammond MD
[2018-02-14 06:27] LABS: BASO # 0.05 K/mm3 (0.0-2.0); BASO % 0.6 % (0.0-3.0); EOS # 0.3 (0.0-0.7); EOS % 3.4 % (1.5-5.0); GRAN # 4.68 (1.4-6.5); HEMOGLOBIN 14.2 g/dL (12.0-16.0); LYMPH # 3.1 (1.2-3.4); LYMPH % 34.5 % (22.0-35.0); MEAN CORPUSCULAR HEMOGLOBIN 31.1 pg (25.0-35.0); MEAN CORPUSCULAR HGB CONC 34.1 g/dl (31.0-37.0); MEAN PLATELET VOLUME 9.1 fl (7.0-11.0); MONO # 0.8 (0.1-0.6); MONO % 8.5 % (1.0-6.0); RBC 4.57 10^6/uL (3.5-6.1); RED CELL DISTRIBUTION WIDTH 12.5 % (11.5-14.5); WHITE BLOOD COUNT 8.8 10^3/ul (4.5-11.0)
--- NOTE | 2018-02-14 06:58 | CP.PCM.PN ---
<Leonel French - Last Filed: 02/14/18 08:46> Subjective - Date & Time of Evaluation Date of Evaluation: 02/14/18 Time of Evaluation: 06:55 - Subjective Subjective: Medicine progress note for Dr. Wallace's service - Leanna French PGY3 Patient seen and examined at bedside this morning. No acute overnight events or new complaints reported. Denies chest pain, palpitations, SOB. Objective - Vital Signs/Intake and Output Vital Signs (last 24 hours): Temp Pulse Resp BP Pulse Ox 97.4 F L 54 L 18 155/70 H 95 02/13/18 18:00 02/13/18 18:43 02/13/18 18:00 02/13/18 18:43 02/13/18 18:00 Intake and Output: 02/13/18 02/14/18 18:59 06:59 Intake Total 900 420 Balance 900 420 - Medications Medications: Current Medications Alprazolam (Xanax) 0.5 mg PO Q6H PRN; Protocol PRN Reason: Anxiety Aspirin (Aspirin Chewable) 81 mg PO DAILY [facility] Last Admin: 02/13/18 09:29 Dose: 81 mg Atorvastatin Calcium (Lipitor) 20 mg PO HS [facility] Last Admin: 02/13/18 21:08 Dose: 20 mg Carbidopa/Levodopa (Sinemet) 1 tab PO TID [facility] Last Admin: 02/13/18 18:43 Dose: 1 tab Donepezil HCl (Aricept) 10 mg PO DAILY [facility] Last Admin: 02/13/18 09:29 Dose: 10 mg Enoxaparin Sodium (Lovenox) 40 mg SC DAILY [facility] PRN Reason: Protocol Last Admin: 02/13/18 11:05 Dose: 40 mg Levothyroxine Sodium (Synthroid) 88 mcg PO DAILY [facility] Last Admin: 02/13/18 09:29 Dose: 88 mcg Memantine (Namenda) 10 mg PO BID [facility] Last Admin: 02/13/18 18:43 Dose: 10 mg Metoprolol Tartrate (Lopressor) 25 mg PO BID [facility] Last Admin: 02/13/18 18:43 Dose: 25 mg Pramipexole Dihydrochloride (Mirapex) 0.5 mg PO DAILY [facility] - Labs Labs: PT 12.9 SECONDS (9.4-12.5) H 02/12/18 17:12 INR 1.13 (0.93-1.08) H 02/12/18 17:12 APTT 30.1 Seconds (25.1-36.5) 02/12/18 17:12 - Constitutional Appears: No Acute Distress, Confused - Head Exam Head Exam: ATRAUMATIC, NORMAL INSPECTION, NORMOCEPHALIC - Eye Exam Eye Exam: EOMI Pupil Exam: PERRL - ENT Exam ENT Exam: Mucous Membranes Moist - Respiratory Exam Respiratory Exam: Clear to Ausculation Bilateral. absent: Rales, Rhonchi, Wheezes - Cardiovascular Exam Cardiovascular Exam: +S1, +S2. absent: Gallop, Rubs - GI/Abdominal Exam GI & Abdominal Exam: Soft. absent: Distended, Firm, Guarding, Rigid, Tenderness , Rebound - Neurological Exam Neurological Exam: Alert, Awake - Psychiatric Exam Psychiatric exam: Normal Affect, Normal Mood - Skin Skin Exam: Dry, Intact, Normal Color, Warm Assessment and Plan - Assessment and Plan (Free Text) Plan: 82yo female with history of dementia, parkinsons, DJD, hypothyroidism, dyslipidemia presents for weakness, difficulty ambulating, incontinence 1. Alzheimers dementia 2. Parkinsons 3. DJD 4. Dyslipidemia 5. Hypothyroidism -CT Head was reviewed which revealed no acute intracranial abnormalities -Neurology was consulted for evaluation - Dr. Hammond -Per neurology, added mirapex 0.5mg po daily -CXR revealed no active disease; EKG showed sinus bradycardia with no acute ST- T wave changes -Patient is afebrile, no leukocytosis; UA is negative -She is on sinemet for parkinsons, memantine for dementia, synthroid for hypothyroidism and lipitor for dyslipidemia -Lovenox for DVT prophylaxis -PT evaluation reviewed; recommended [facility] -Case management/Social work evaluation ; pending placement Patient seen and case discussed/reviewed with attending, Dr. Wallace <Tommie Wallace - Last Filed: 02/14/18 22:59> Objective - Vital Signs/Intake and Output Vital Signs (last 24 hours): Temp Pulse Resp BP Pulse Ox 97.8 F 63 20 170/69 H 94 L 02/14/18 16:27 02/14/18 17:07 02/14/18 16:27 02/14/18 17:07 02/14/18 16:27 Intake and Output: 02/14/1818 18:59 06:59 Intake Total 420 Balance 420 - Medications Medications: Current Medications Alprazolam (Xanax) 0.5 mg PO Q6H PRN; Protocol PRN Reason: Anxiety Last Admin: 02/14/18 09:43 Dose: 0.5 mg Aspirin (Aspirin Chewable) 81 mg PO DAILY [facility] Last Admin: 02/14/18 09:43 Dose: 81 mg Atorvastatin Calcium (Lipitor) 20 mg PO HS [facility] Last Admin: 02/14/18 22:03 Dose: 20 mg Carbidopa/Levodopa (Sinemet) 1 tab PO TID [facility] Last Admin: 02/14/18 17:07 Dose: 1 tab Donepezil HCl (Aricept) 10 mg PO DAILY [facility] Last Admin: 02/14/18 09:43 Dose: 10 mg Enoxaparin Sodium (Lovenox) 40 mg SC DAILY [facility] PRN Reason: Protocol Last Admin: 02/14/18 09:43 Dose: 40 mg Levothyroxine Sodium (Synthroid) 88 mcg PO DAILY [facility] Last Admin: 02/14/18 09:43 Dose: 88 mcg Memantine (Namenda) 10 mg PO BID [facility] Last Admin: 02/14/18 17:07 Dose: 10 mg Metoprolol Tartrate (Lopressor) 25 mg PO BID [facility] Last Admin: 02/14/18 17:07 Dose: 25 mg Polyethylene Glycol (Miralax) 17 gm PO DAILY [facility] Last Admin: 02/14/18 16:49 Dose: 17 gm Pramipexole Dihydrochloride (Mirapex) 0.5 mg PO DAILY [facility] Last Admin: 02/14/18 09:43 Dose: 0.5 mg - Labs Labs: 02/14/18 05:45 02/14/18 05:45 PT 12.9 SECONDS (9.4-12.5) H 02/12/18 17:12 INR 1.13 (0.93-1.08) H 02/12/18 17:12 APTT 30.1 Seconds (25.1-36.5) 02/12/18 17:12 Assessment and Plan - Assessment and Plan (Free Text) Plan: Pt seen and examined. I have reviewed the note of the biomedical scientist and agree with it. I have discussed the assessment and plan with the resident. I have reviewed the patient's labs and medications. Pt was seen by Neurology and I have reviewed the note. Pt will need [facility]. Will need PT.
[2018-02-14 06:59] LABS: ALB/GLOB RATIO 1.5 (1.1-1.8); ALBUMIN 4.1 g/dL (3.0-4.8); ALT/SGPT 13 U/L (7-56); AST/SGOT 19 U/L (14-36); BLOOD UREA NITROGEN 10 mg/dL (7-21); CALCIUM 8.9 mg/dL (8.4-10.5); GFR AFRICAN-AMERICAN > 60; GFR NON-AFRICAN AMERICAN > 60
[2018-02-14] MEDS: Levothyroxine 88 MCG TAB PO SCH (09:43)
[2018-02-14] MEDS: Enoxaparin 40 mg Syringe SC SCH (09:43)
--- NOTE | 2018-02-14 12:14 | CP.PCM.PCO ---
Physician Communication Note - Physician Communication Note Physician Communication Note: needs rehab and nursing home care, c/w with current meds for PD/AD.
[2018-02-14 16:31] VITALS: RESP 20
[2018-02-14] MEDS: POLYETHYLENE GLYCOL 3350 17 GM/Dose PACKET PO SCH (16:49)
[2018-02-15 08:10] VITALS: BP 144/68; TEMP 97.7; O2SAT 98
--- NOTE | 2018-02-15 09:10 | CP.PCM.DIS ---
<Leonel French - Last Filed: 02/15/18 09:38> Provider - Provider Date of Admission: 02/12/18 20:59 Attending physician: Tommie Wallace MD Primary care physician: Sha Hooper MD Consults: Neurology - Dr. Hammond Time Spent in preparation of Discharge (in minutes): 35 Hospital Course - Lab Results Lab Results: Most Recent Lab Values WBC 8.8 10^3/ul (4.5-11.0) 02/14/18 05:45 RBC 4.57 10^6/uL (3.5-6.1) 02/14/18 05:45 Hgb 14.2 g/dL (12.0-16.0) 02/14/18 05:45 Hct 41.6 % (36.0-48.0) 02/14/18 05:45 MCV 91.0 fl (80.0-105.0) 02/14/18 05:45 MCH 31.1 pg (25.0-35.0) 02/14/18 05:45 MCHC 34.1 g/dl (31.0-37.0) 02/14/18 05:45 RDW 12.5 % (11.5-14.5) 02/14/18 05:45 Plt Count 265 10^3/uL (120.0-450.0) 02/14/18 05:45 MPV 9.1 fl (7.0-11.0) 02/14/18 05:45 Gran % 53.0 % (50.0-68.0) 02/14/18 05:45 Lymph % (Auto) 34.5 % (22.0-35.0) 02/14/18 05:45 Valley % (Auto) 8.5 % (1.0-6.0) H 02/14/18 05:45 Eos % (Auto) 3.4 % (1.5-5.0) 02/14/18 05:45 Baso % (Auto) 0.6 % (0.0-3.0) 02/14/18 05:45 Gran # 4.68 (1.4-6.5) 02/14/18 05:45 Lymph # (Auto) 3.1 (1.2-3.4) 02/14/18 05:45 [place] # (Auto) 0.8 (0.1-0.6) H 02/14/18 05:45 Eos # (Auto) 0.3 (0.0-0.7) 02/14/18 05:45 Baso # (Auto) 0.05 K/mm3 (0.0-2.0) 02/14/18 05:45 PT 12.9 SECONDS (9.4-12.5) H 02/12/18 17:12 INR 1.13 (0.93-1.08) H 02/12/18 17:12 APTT 30.1 Seconds (25.1-36.5) 02/12/18 17:12 Sodium 135 mmol/L (132-148) 02/14/18 05:45 Potassium 4.4 mmol/L (3.6-5.0) 02/14/18 05:45 Chloride 96 mmol/L (98-107) L 02/14/18 05:45 Carbon Dioxide 27 mmol/L (21-33) 02/14/18 05:45 Anion Gap 16 (10-20) 02/14/18 05:45 BUN 10 mg/dL (7-21) 02/14/18 05:45 Creatinine 0.6 mg/dl (0.7-1.2) L 02/14/18 05:45 Est GFR ( Amer) > 60 02/14/18 05:45 Est GFR (Non-Af Amer) > 60 02/14/18 05:45 POC Glucose (mg/dL) 145 mg/dL (65-110) H 02/12/18 16:28 Random Glucose 98 mg/dL (70-110) 02/14/18 05:45 Calcium 8.9 mg/dL (8.4-10.5) 02/14/18 05:45 Total Bilirubin 0.8 mg/dL (0.2-1.3) 02/14/18 05:45 AST 19 U/L (14-36) 02/14/18 05:45 ALT 13 U/L (7-56) 02/14/18 05:45 Alkaline Phosphatase 77 U/L (38-126) 02/14/18 05:45 Lactate Dehydrogenase 404 U/L (333-699) 02/12/18 17:12 Total Creatine Kinase < 20 U/L (35-230) L 02/12/18 17:12 Troponin I < 0.01 ng/mL 02/12/18 17:12 Total Protein 6.9 g/dL (5.8-8.3) 02/14/18 05:45 Albumin 4.1 g/dL (3.0-4.8) 02/14/18 05:45 Globulin 2.8 gm/dL 02/14/18 05:45 Albumin/Globulin Ratio 1.5 (1.1-1.8) 02/14/18 05:45 Urine Color Yellow (YELLOW) 02/12/18 20:15 Urine Appearance Clear (CLEAR) 02/12/18 20:15 Urine pH 6.0 (4.7-8.0) 02/12/18 20:15 Ur Specific [place] 1.015 (1.005-1.035) 02/12/18 20:15 Urine Protein Negative mg/dL (<30 mg/dL) 02/12/18 20:15 Urine Glucose (UA) Negative mg/dL (NEGATIVE) 02/12/18 20:15 Urine Ketones Negative mg/dL (NEGATIVE) 02/12/18 20:15 Urine Blood Negative (NEGATIVE) 02/12/18 20:15 Urine Nitrate Negative (NEGATIVE) 02/12/18 20:15 Urine Bilirubin Negative (NEGATIVE) 02/12/18 20:15 Urine Urobilinogen 0.2 E.U./dL (<1 E.U./dL) 02/12/18 20:15 Ur Leukocyte Esterase Trace [place]/uL (NEGATIVE) H 02/12/18 20:15 Urine RBC Negative /hpf (0-2) 02/12/18 20:15 Urine WBC 0 - 2 /hpf (0-6) 02/12/18 20:15 Ur Epithelial Cells 0 - 2 /hpf (0-5) 02/12/18 20:15 Urine Bacteria None (NEG) 02/12/18 20:15 Hyaline Casts 0 - 2 /hpf 02/12/18 20:15 - Hospital Course Hospital Course: Patient is a 82yo female with past medical history of alzheimers dementia, parkinsons, DJD, diverticulosis, hypertension, hypothyroidism and dyslipidemia that presented [facility] accompanied by her daughter with reports of more profound weakness, difficulty ambulating/bed-bound, and inability to perform her activities of daily living. Per patients daughter, she has required more assistance and has been incontinent. There were no reports of trauma/injury or loss of consciousness. On evaluation, CXR revealed no active disease and EKG showed sinus bradycardia with no acute ST-T wave changes. CT Head revealed no acute intracranial abnormalities. CBC/CMP was unremarkable and urine culture was negative for growth. Neurology was consulted for evaluation and attributed complaints to alzheimers dementia/parkinsons. Physical therapy evaluated and recommended subacute rehabilitation. Workup/results were discussed with the family, specifically Erica (daughter) and she was agreeable to discharge to [facility] for physical therapy/ rehabilitation. Discharge Exam - Head Exam Head Exam: ATRAUMATIC, NORMAL INSPECTION, NORMOCEPHALIC - Eye Exam Eye Exam: EOMI Pupil Exam: PERRL - ENT Exam ENT Exam: Mucous Membranes Moist - Respiratory Exam Respiratory Exam: Clear to PA & Lateral. absent: Rales, Rhonchi, Wheezes - Cardiovascular Exam Cardiovascular Exam: RRR, +S1, +S2. absent: Gallop, Rubs - GI/Abdominal Exam GI & Abdominal Exam: Soft. absent: Distended, Firm, Guarding, Rebound, Rigid, Tenderness - Extremities Exam Extremities exam: normal inspection - Neurological Exam Neurological exam: Alert, CN II-XII Intact Additional comments: confused oriented to person only - Psychiatric Exam Psychiatric exam: Normal Affect, Normal Mood - Skin Skin Exam: Dry, Intact, Normal Color, Warm Discharge Plan - Follow Up Plan Condition: FAIR Disposition: TRANSF TO SNF Instructions: Preventing Falls in the Older Adult, Dementia (DC) Additional Instructions: 1. Follow up with your primary doctor within 1 week of discharge. 2. Continue to take your medications as directed. 3. Return to the emergency room should you have a worsening of your symptoms. Referrals: Sha Hooper MD [Primary Care Provider] - <Tommie Wallace - Last Filed: 02/15/18 23:35> Provider - Provider Date of Admission: 02/12/18 20:59 Attending physician: Tommie Wallace MD Primary care physician: Sha Hooper MD Hospital Course - Lab Results Lab Results: Most Recent Lab Values WBC 8.8 10^3/ul (4.5-11.0) 02/14/18 05:45 RBC 4.57 10^6/uL (3.5-6.1) 02/14/18 05:45 Hgb 14.2 g/dL (12.0-16.0) 02/14/18 05:45 Hct 41.6 % (36.0-48.0) 02/14/18 05:45 MCV 91.0 fl (80.0-105.0) 02/14/18 05:45 MCH 31.1 pg (25.0-35.0) 02/14/18 05:45 MCHC 34.1 g/dl (31.0-37.0) 02/14/18 05:45 RDW 12.5 % (11.5-14.5) 02/14/18 05:45 Plt Count 265 10^3/uL (120.0-450.0) 02/14/18 05:45 MPV 9.1 fl (7.0-11.0) 02/14/18 05:45 Gran % 53.0 % (50.0-68.0) 02/14/18 05:45 Lymph % (Auto) 34.5 % (22.0-35.0) 02/14/18 05:45 [place] % (Auto) 8.5 % (1.0-6.0) H 02/14/18 05:45 Eos % (Auto) 3.4 % (1.5-5.0) 02/14/18 05:45 Baso % (Auto) 0.6 % (0.0-3.0) 02/14/18 05:45 Gran # 4.68 (1.4-6.5) 02/14/18 05:45 Lymph # (Auto) 3.1 (1.2-3.4) 02/14/18 05:45 [place] # (Auto) 0.8 (0.1-0.6) H 02/14/18 05:45 Eos # (Auto) 0.3 (0.0-0.7) 02/14/18 05:45 Baso # (Auto) 0.05 K/mm3 (0.0-2.0) 02/14/18 05:45 PT 12.9 SECONDS (9.4-12.5) H 02/12/18 17:12 INR 1.13 (0.93-1.08) H 02/12/18 17:12 APTT 30.1 Seconds (25.1-36.5) 02/12/18 17:12 Sodium 135 mmol/L (132-148) 02/14/18 05:45 Potassium 4.4 mmol/L (3.6-5.0) 02/14/18 05:45 Chloride 96 mmol/L (98-107) L 02/14/18 05:45 Carbon Dioxide 27 mmol/L (21-33) 02/14/18 05:45 Anion Gap 16 (10-20) 02/14/18 05:45 BUN 10 mg/dL (7-21) 02/14/18 05:45 Creatinine 0.6 mg/dl (0.7-1.2) L 02/14/18 05:45 Est GFR ( Amer) > 60 02/14/18 05:45 Est GFR (Non-Af Amer) > 60 02/14/18 05:45 POC Glucose (mg/dL) 145 mg/dL (65-110) H 02/12/18 16:28 Random Glucose 98 mg/dL (70-110) 02/14/18 05:45 Calcium 8.9 mg/dL (8.4-10.5) 02/14/18 05:45 Total Bilirubin 0.8 mg/dL (0.2-1.3) 02/14/18 05:45 AST 19 U/L (14-36) 02/14/18 05:45 ALT 13 U/L (7-56) 02/14/18 05:45 Alkaline Phosphatase 77 U/L (38-126) 02/14/18 05:45 Lactate Dehydrogenase 404 U/L (333-699) 02/12/18 17:12 Total Creatine Kinase < 20 U/L (35-230) L 02/12/18 17:12 Troponin I < 0.01 ng/mL 02/12/18 17:12 Total Protein 6.9 g/dL (5.8-8.3) 02/14/18 05:45 Albumin 4.1 g/dL (3.0-4.8) 02/14/18 05:45 Globulin 2.8 gm/dL 02/14/18 05:45 Albumin/Globulin Ratio 1.5 (1.1-1.8) 02/14/18 05:45 Urine Color Yellow (YELLOW) 07/10/18 20:15 Urine Appearance Clear (CLEAR) 02/12/18 20:15 Urine pH 6.0 (4.7-8.0) 02/12/18 20:15 Ur Specific [place] 1.015 (1.005-1.035) 02/12/18 20:15 Urine Protein Negative mg/dL (<30 mg/dL) 02/12/18 20:15 Urine Glucose (UA) Negative mg/dL (NEGATIVE) 02/12/18 20:15 Urine Ketones Negative mg/dL (NEGATIVE) 02/12/18 20:15 Urine Blood Negative (NEGATIVE) 02/12/18 20:15 Urine Nitrate Negative (NEGATIVE) 02/12/18 20:15 Urine Bilirubin Negative (NEGATIVE) 02/12/18 20:15 Urine Urobilinogen 0.2 E.U./dL (<1 E.U./dL) 02/12/18 20:15 Ur Leukocyte Esterase Trace [place]/uL (NEGATIVE) H 02/12/18 20:15 Urine RBC Negative /hpf (0-2) 02/12/18 20:15 Urine WBC 0 - 2 /hpf (0-6) 02/12/18 20:15 Ur Epithelial Cells 0 - 2 /hpf (0-5) 02/12/18 20:15 Urine Bacteria None (NEG) 02/12/18 20:15 Hyaline Casts 0 - 2 /hpf 02/12/18 20:15 - Hospital Course Hospital Course: Pt seen and examined. I have reviewed the note of the medical center representative and agree with it. I have discussed the assessment and plan with the resident. I have reviewed the patient's labs and medications. Spoke to daughter to update. Pt going to [facility] for [facility]. Pt has Parkinson's and most likely has dementia.
[2018-02-15] MEDS: Levothyroxine 88 MCG TAB PO SCH (09:30)
[2018-02-15] MEDS: POLYETHYLENE GLYCOL 3350 17 GM/Dose PACKET PO SCH (09:31)
[2018-02-15] MEDS: Enoxaparin 40 mg Syringe SC SCH (09:31)
[2018-02-15 09:36] VITALS: PULSE 60
== END 2018-02-15 18:03 | DRG 57 ==
LOC: ED 15:39 → ERH 20:59 → 3RNO 22:54
PROVIDERS: ADMIT Internal Medicine Nephrology; ATTEND Internal Medicine Nephrology
DX: G30.9 Alzheimer's disease, unspecified (principal); F02.80 Dementia in other diseases classified elsewhere, unspecified severity, without behavioral disturbance, psychotic disturbance, mood disturbance, and anxiety; E03.9 Hypothyroidism, unspecified; E78.5 Hyperlipidemia, unspecified; G20 Parkinson's disease; I10 Essential (primary) hypertension; K21.9 Gastro-esophageal reflux disease without esophagitis; M79.7 Fibromyalgia; Z86.73 Personal history of transient ischemic attack (TIA), and cerebral infarction without residual deficits; Z87.891 Personal history of nicotine dependence; Z90.49 Acquired absence of other specified parts of digestive tract; Z90.710 Acquired absence of both cervix and uterus

== ENCOUNTER 2018-03-13 20:08 | Observation (INO) | payer MEDICARE, MEDICAID ==
[2018-03-13 20:11] VITALS: BMI 32.2
--- NOTE | 2018-03-13 20:30 | ED PDOC ---
Arrival/HPI <NanciCatarino farah - Last Filed: 03/13/18 22:40> - General Historian: Patient EM Caveat: Dementia <Manjinder Griffin - Last Filed: 03/13/18 23:38> - General Chief Complaint: Weakness/Neurological Deficit Time Seen by Provider: 03/13/18 20:11 - History of Present Illness Narrative History of Present Illness (Text): Patient is a 82 year old female with past medical history of alzheimers dementia , parkinsons, DJD, diverticulosis, hypertension, hypothyroidism and dyslipidemia presenting from alf for increasing confusion since yesterday. There is no family or alf staff at bedside to give any history. Per nursing staff, NH called and stated that patient has been experiencing increasing lethargy and confusion since yesterday. Patient's PMD was contacted and instructed NH to take patient to ED. Patient is currently orientated to self only and unable to give any history. She denies being in any pain and states she feels good. (Manjinder Griffin) Past Medical History - Provider Review Nursing Documentation Reviewed: Yes - Infectious Disease Hx of Infectious Diseases: None - Reproductive Menopause: Yes - Cardiac Hx Cardiac Disorders: Yes (mi) Hx Hypertension: Yes - Pulmonary Hx Respiratory Disorders: Yes (CHRONIC COUGH) - Neurological Hx Neurological Disorder: Yes (FIBROMYALGIA) HX Cerebrovascular Accident: Yes (Mild per family 2 years ago) Hx Dementia: Yes (forgetful) Hx Dizziness: Yes - HEENT Hx HEENT Disorder: Yes (uses glasses) - Renal Hx Renal Disorder: No - Endocrine/Metabolic Hx Endocrine Disorders: Yes Hx Hypothyroidism: Yes - Hematological/Oncological Hx Blood Disorders: No - Integumentary Hx Dermatological Disorder: No - Musculoskeletal/Rheumatological Hx Musculoskeletal Disorders: Yes Hx Falls: Yes (past) - Gastrointestinal Hx Gastrointestinal Disorders: Yes Hx Diverticulitis: Yes Hx Gastroesophageal Reflux: Yes Other/Comment: intestinal blockage with surgery, part of colon removed - Genitourinary/Gynecological Hx Genitourinary Disorders: No - Psychiatric Hx Psychophysiologic Disorder: Yes Hx Depression: Yes Hx Substance Use: No - Surgical History Hx Appendectomy: Yes Hx Cholecystectomy: Yes Hx Hysterectomy: Yes Other/Comment: Part of colon removed after blockage - Anesthesia Hx Anesthesia: Yes Hx Anesthesia Reactions: No Hx Malignant Hyperthermia: No - Suicidal Assessment Feels Threatened In Home Enviroment: No <Manjinder Griffin - Last Filed: 03/13/18 23:38> Family/Social History - Physician Review Nursing Documentation Reviewed: Yes Family/Social History: Unknown Family HX Smoking Status: Former Smoker Hx Alcohol Use: No Hx Substance Use: No <Manjinder Griffin - Last Filed: 03/13/18 23:38> Allergies/Home Meds <Catarino Christine - Last Filed: 03/13/18 22:40> <Manjinder Griffin - Last Filed: 03/13/18 23:38> Allergies/Adverse Reactions: Allergies levofloxacin [From Levaquin] Allergy (Verified 03/13/18 20:15) RASH Penicillins Allergy (Verified 03/13/18 20:15) ITCHING aspirin Adverse Reaction (Verified 03/13/18 20:15) VOMITING Home Medications: Home Meds Medication Instructions Recorded Confirmed Aspirin [Aspirin Chewable] 81 mg PO DAILY 09/27/16 03/13/18 Atorvastatin [Lipitor] 20 mg PO DAILY 09/27/16 03/13/18 Levothyroxine [Synthroid] 0.088 mg PO DAILY 09/27/16 03/13/18 Memantine [Namenda] 10 mg PO BID 09/27/16 03/13/18 Metoprolol Tartrate [Lopressor] 25 mg PO BID 09/27/16 03/13/18 Solifenacin Succinate [Vesicare] 5 mg PO DAILY 09/27/16 03/13/18 Carbidopa/Levodopa 1 each PO TID 03/13/17 03/13/18 [Carbidopa-Levodopa 25-100 Tab] Donepezil [Aricept] 10 mg PO DAILY 03/13/17 03/13/18 Melatonin 10 mg PO HS 02/12/18 03/13/18 Review of Systems - Physician Review All systems were reviewed & negative as marked: Yes - Review of Systems Systems not reviewed;Unavailable: Dementia <Manjinder Griffin - Last Filed: 03/13/18 23:38> Physical Exam Vital Signs Reviewed: Yes Temperature: Afebrile Blood Pressure: Hypertensive Pulse: Regular Respiratory Rate: Normal Appearance: Positive for: Well-Appearing, Non-Toxic, Comfortable Pain Distress: None Mental Status: Positive for: Alert and Oriented X 3 - Systems Exam Head: Present: Atraumatic, Normocephalic Pupils: Present: PERRL Conjunctiva: Present: Normal Mouth: Present: Moist Mucous Membranes Nose (External): Present: Atraumatic Nose (Internal): Present: Normal Inspection, No Active Bleeding, Moist. No: Engorged, Edematous Neck: No: Meningeal Signs, JVD, Lymphadenopathy Respiratory/Chest: Present: Clear to Auscultation, Good Air Exchange. No: Respiratory Distress, Accessory Muscle Use Cardiovascular: Present: Regular Rate and Rhythm, Normal S1, S2. No: Murmurs Abdomen: No: Tenderness, Distention, Peritoneal Signs Upper Extremity: Present: Normal Inspection, NORMAL PULSES. No: Cyanosis, Edema Lower Extremity: Present: Edema (1+ pitting b/l), NORMAL PULSES. No: CALF TENDERNESS Neurological: Present: GCS=15, CN II-XII Intact, Speech Normal Skin: Present: Warm, Dry, Normal Color. No: Rashes Psychiatric: Present: Alert, Oriented x 3, Normal Insight, Normal Concentration <Manjinder Griffin - Last Filed: 03/13/18 23:38> Vital Signs Temp Pulse Resp BP Pulse Ox 03/13/18 23:08 67 19 126/56 L 97 03/13/18 22:47 67 120/63 03/13/18 22:12 65 18 137/65 97 03/13/18 20:18 98.9 F 71 19 154/56 H 96 Medical Decision Making - Lab Interpretations I have reviewed the lab results: Yes <Catarino Christine - Last Filed: 03/13/18 22:40> - Lab Interpretations I have reviewed the lab results: Yes Interpretation: Abnormal lab values - RAD Interpretation Tire Trucker: Radiologist - EKG Interpretation Interpreted by ED Physician: Yes Type: 12 lead EKG <Manjinder Griffin - Last Filed: 03/13/18 23:38> ED Course and Treatment: 03/13/18 Patient Seen With Resident: In agreement with resident note which contains more details about the patient. Patient was seen and evaluated with resident. Came up with plan and treatment together. 03/13/18 22:[address] Wallace, who is aware and agrees with plan. Accepts pt in to his service. Pt will go to [facility] observation for AMS, dementia, and UTI. (Catarino Christine) 03/13/18 20:43 Pleasant appearing demented patient who is unable to give any history. Labs Head CT w/o 03/13/18 20:58 Daughter is now at bedside and states that her mother has been getting progressively worse since October. She also reports a hx of multiple "mini strokes " starting approximately 2 years ago. Patient at baseline is very confused and does not know/recognize much of anything. Daughter states she understands that the disease is progressive because she went through this with her father, but feels that the patient looks similar to when she had her last "mini stroke". She states that the patient the patient never had slurred speech, facial droop or hemiparesis. The daughter called the patient's PMD because she felt the patient was shaking more than usual. 03/13/18 22:33 Mild elevated WBC, small leuk jalen - given Azactam 1gm IVPB (due to penicillin allergy) Head CT normal Called and discussed case with Dr. Wallace, will bring patient in for observation for worsening dementia, altered mental status and UTI. (Holli, Manjinder) - Lab Interpretations Lab Results: 03/13/18 20:50 03/13/18 20:50 Lab Results 03/13/18 21:45: Urine Color Yellow, Urine Appearance Clear, Urine pH 7.0, Ur Specific [place] <= 1.005, Urine Protein Negative, Urine Glucose (UA) Negative, Urine Ketones Negative, Urine Blood Negative, Urine Nitrate Negative, Urine Bilirubin Negative, Urine Urobilinogen 0.2, Ur Leukocyte Esterase Small H, Urine RBC Negative, Urine WBC 2 - 5, Ur Epithelial Cells 3 - 4, Urine Bacteria Mod 03/13/18 20:50: Sodium 143, Potassium 4.3, Chloride 102, Carbon Dioxide 30, Anion Gap 15, BUN 15, Creatinine 0.7, Est GFR ( Amer) > 60, Est GFR (Non- Af Amer) > 60, Random Glucose 116 H, Calcium 9.2, Magnesium 1.9, Total Bilirubin 0.6, AST 17, ALT 12, Alkaline Phosphatase 89, Troponin I < 0.01, Total Protein 7.1, Albumin 3.9, Globulin 3.2, Albumin/Globulin Ratio 1.2 03/13/18 20:50: WBC 12.0 H D, RBC 4.28, Hgb 13.5, Hct 40.0, MCV 93.5, MCH 31.5, MCHC 33.8, RDW 13.1, Plt Count 338, MPV 9.3, Gran % 66.6, Lymph % (Auto) 20.4 L , Dale % (Auto) 12.0 H, Eos % (Auto) 0.8 L, Baso % (Auto) 0.2, Gran # 7.97 H, Lymph # (Auto) 2.4, Dale # (Auto) 1.4 H, Eos # (Auto) 0.1, Baso # (Auto) 0.02 03/13/18 20:20: POC Glucose (mg/dL) 151 H - RAD Interpretation Narrative RAD Interpretations (Text): 03/13/18 22:13 [facility] Preliminary Radiology Report Call: [phone] assistance Online chat: [email or web address] Patient Name: SYD BERUMEN Institution Name: [place] [address] Study Type: CT HEAD WO Ordered As: CT HEAD W O CONTRAST Date of Dictation: 13 Mar 2018 EDT Date of Exam: 13 Mar 2018 EDT Account Number: Patient : [id number] Patient Location: ED Restaurant Attendant: Account #: Referring Physician: Manjinder GRIFFIN This interpretation is based upon the receipt of 368 images. PRIMARY CARE PROVIDER (QA) DISCREPANCY? If there is a discrepancy between the preliminary and final interpretation, please notify [facility] via [email or web address]. If you do not have access to our QA portal, call our QA team at [phone] CONFIDENTIALITY STATEMENT This report is intended only for the use of the referring physician, and only in accordance with law, If you received this in error, call [phone] Page 1 of 1 EXAM: CT Head Without Intravenous Contrast CLINICAL HISTORY: 82 years old, female; Signs and symptoms; Other: Increased confusion; Additional info: Increasing confusion TECHNIQUE: Axial computed tomography images of the head/brain without intravenous contrast. All CT scans at this facility use at least one of these dose optimization techniques: automated exposure control; mA and/or kV adjustment per patient size (includes targeted exams where dose is matched to clinical indication); or iterative reconstruction. COMPARISON: CT - HEAD W/O CONTRAST 2018-02-12 21:39 FINDINGS: Brain: Diffuse cerebral volume loss and chronic microvascular white matter changes. Ventricles: Unremarkable. Bones/joints: Unremarkable. No acute fracture. Soft tissues: Unremarkable. Sinuses: Unremarkable as visualized. Mastoid air cells: Right mastoid effusion, nonspecific. IMPRESSION: No acute findings. Thank you for allowing us to participate in the care of your patient. Dictated and Authenticated by: Koby Reed MD 03/13/2018 10:01 PM Eastern Time ([place] & [place]) (Manjinder Griffin) Radiology Orders: 03/13/18 20:26 HEAD W/O CONTRAST [CT] Stat - EKG Interpretation EKG Interpretation (Text): 03/13/18 21:45 NSR @ 70bpm, normal axis, no acute ST elevations - normal EKG improved EKG from previous on 11/12/16 (Manjinder Griffin) - Medication Orders Current Medication Orders: Aspirin (Aspirin Chewable) 81 mg PO DAILY [facility] Atorvastatin Calcium (Lipitor) 20 mg PO HS [facility] Last Admin: 03/13/18 22:47 Dose: 20 mg Carbidopa/Levodopa (Sinemet) 1 tab PO TID [facility] Donepezil HCl (Aricept) 10 mg PO HS [facility] Levothyroxine Sodium (Synthroid) 88 mcg PO 0600 [facility] Memantine (Namenda) 10 mg PO BID [facility] Metoprolol Tartrate (Lopressor) 25 mg PO BID [facility] Last Admin: 03/13/18 22:47 Dose: 25 mg MAR Pulse and Blood Pressure Document 03/13/18 22:47 RD (Rec: 03/13/18 22:48 RD [id number]) Pulse Pulse Rate (60-90) 67 Blood Pressure Blood Pressure (100/60-150/90) 120/63 Pramipexole Dihydrochloride (Mirapex) 0.5 mg PO DAILY [facility] Discontinued Medications Aztreonam (Azactam 1 Gm) 100 mls @ 100 mls/hr IVPB STAT STA PRN Reason: Protocol Stop: 03/13/18 23:25 Last Admin: 03/13/18 22:39 Dose: 100 mls/hr eMAR Start Stop Document 03/13/18 22:39 RD (Rec: 03/13/18 22:39 RD [id number]) Intravenous Solution Start Date 03/13/18 Start Time 22:39 End Date 03/13/18 End time 23:39 Total Infusion Time 60 - PA / SURGICAL ELASTIC KNITTER HAND FRAME / Resident Statement AKIRA has reviewed & agrees with the documentation as recorded. AKIRA has examined the patient and agrees with the treatment plan. <Catarino Christine - Last Filed: 03/13/18 22:40> Disposition/Present on Arrival <Catarino Christine - Last Filed: 03/13/18 22:40> - Present on Arrival Any Indicators Present on Arrival: No History of DVT/PE: No History of Uncontrolled Diabetes: No Urinary Catheter: No History of Decub. Ulcer: No History Surgical Site Infection Following: None - Disposition Have Diagnosis and Disposition been Completed?: Yes Disposition Time: 22:36 Patient Plan: Observation <Manjinder Griffin - Last Filed: 03/13/18 23:38> - Disposition Diagnosis: Dementia, Altered mental status, UTI (urinary tract infection) Disposition: HOSPITALIZED Patient Problems: Current Active Problems Problem Status Onset Dementia Acute Altered mental status Acute UTI (urinary tract infection) Acute Condition: GUARDED
[2018-03-13 21:17] LABS: HEMOGLOBIN 13.5 g/dL (12.0-16.0); MEAN CELL VOLUME 93.5 fl (80.0-105.0); MEAN CORPUSCULAR HEMOGLOBIN 31.5 pg (25.0-35.0); MEAN CORPUSCULAR HGB CONC 33.8 g/dl (31.0-37.0); RBC 4.28 10^6/uL (3.5-6.1); RED CELL DISTRIBUTION WIDTH 13.1 % (11.5-14.5)
[2018-03-13 21:18] LABS: BASO # 0.02 K/mm3 (0.0-2.0); BASO % 0.2 % (0.0-3.0); EOS # 0.1 (0.0-0.7); EOS % 0.8 % (1.5-5.0); GRAN # 7.97 (1.4-6.5); GRAN % 66.6 % (50.0-68.0); LYMPH # 2.4 (1.2-3.4); LYMPH % 20.4 % (22.0-35.0); MEAN PLATELET VOLUME 9.3 fl (7.0-11.0); MONO # 1.4 (0.1-0.6)
[2018-03-13 21:19] LABS: ALB/GLOB RATIO 1.2 (1.1-1.8); ALBUMIN 3.9 g/dL (3.0-4.8); ALT/SGPT 12 U/L (7-56); AST/SGOT 17 U/L (14-36); BLOOD UREA NITROGEN 15 mg/dL (7-21); CALCIUM 9.2 mg/dL (8.4-10.5); GFR AFRICAN-AMERICAN > 60; GFR NON-AFRICAN AMERICAN > 60
[2018-03-13 21:24] LABS: TROPONIN I < 0.01 ng/mL
[2018-03-13 22:10] LABS: URINE BILIRUBIN NEGATIVE (NEGATIVE); URINE BLOOD NEGATIVE (NEGATIVE); URINE GLUCOSE (UA) NEGATIVE (NEGATIVE); URINE LEUKOCYTE ESTERASE SMALL Leu/uL (NEGATIVE); URINE PROTEIN NEGATIVE mg/dL (<30 mg/dL); URINE UROBILINOGEN 0.2 E.U./dL (<1 E.U./dL)
[2018-03-13 22:12] LABS: URINE APPEARANCE CLEAR (CLEAR); URINE COLOR YELLOW (YELLOW)
[2018-03-13 22:13] LABS: URINE BACTERIA MOD (NEG); URINE RBC NEGATIVE /hpf (0-2)
[2018-03-13] MEDS ORDERED: Aztreonam 1 Gm in NS 100mL 100 ML IVPB STA (22:26)
[2018-03-14 02:20] VITALS: RESP 20
[2018-03-14] MEDS ORDERED: Levothyroxine 88 MCG TAB PO SCH (06:00)
--- NOTE | 2018-03-14 08:12 | CT ---
Date of service: 03/13/2018 PROCEDURE: CT HEAD WITHOUT CONTRAST. HISTORY: increasing confusion COMPARISON: None available. TECHNIQUE: Axial computed tomography images were obtained through the head/brain without intravenous contrast. Radiation dose: Total exam DLP = 894 mGy-cm. This CT exam was performed using one or more of the following dose reduction techniques: Automated exposure control, adjustment of the mA and/or kV according to patient size, and/or use of iterative reconstruction technique. FINDINGS: HEMORRHAGE: No intracranial hemorrhage. BRAIN: No mass effect or edema. Chronic microvascular changes are seen in the periventricular white matter. VENTRICLES: Unremarkable. No hydrocephalus. CALVARIUM: Unremarkable. PARANASAL SINUSES: Unremarkable as visualized. No significant inflammatory changes. MASTOID AIR CELLS: Unremarkable as visualized. No inflammatory changes. OTHER FINDINGS: The report concurs with the preliminary [facility] report IMPRESSION: No acute intracranial findings
[2018-03-14] MEDS ORDERED: Aztreonam 1 Gm in NS 100mL 100 ML IV SCH (14:00)
[2018-03-14 14:32] VITALS: BP 137/68; PULSE 64
[2018-03-14 14:54] VITALS: TEMP 99.2; O2SAT 95
--- NOTE | 2018-03-14 15:08 | CARD ---
APPROVED REPORT Date of service: 03/13/2018 EKG Measurement Heart [id number] <Conclusion> Normal sinus rhythm Normal ECG
--- NOTE | 2018-03-15 05:36 | HP ---
Copied To: Tommie Wallace MD Attending MD: Tommie Wallace MD CHIEF COMPLAINT AND HISTORY OF PRESENT ILLNESS: This is an 82-year-old female, who has come into the hospital because of confusion. 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 She was getting more confused in the intermediate and decided to send her to the hospital for further evaluation. She is becoming lethargic. The patient looks well this morning, she is at her baseline. She is not able to give us information regarding her condition and review of symptoms because of underlying condition of dementia. ALLERGIES: PENICILLIN ALLERGIES. HOME MEDICATIONS: Has been reviewed on the OCT. PAST MEDICAL HISTORY: As above. PAST SURGICAL HISTORY: Cholecystectomy. FAMILY HISTORY: Noncontributory. SOCIAL HISTORY: She denies smoking or drinking. PHYSICAL EXAMINATION: VITAL SIGNS: Temperature 98.9, pulse is 67, blood pressure 137/55, respirations 20, O2 saturation 97%. GENERAL: The patient lying in bed, uncomfortable, and in no acute distress. HEENT: Atraumatic and normocephalic. Anicteric sclerae. Moist mucosa. [place] conjunctivae. No oral lesions. NECK: No JVD, anterior and posterior adenopathy, thyromegaly, or bruits. CARDIOVASCULAR: S1 and S2 regular. No murmur, rubs, or gallop. LUNGS: Clear to auscultation bilaterally. No wheezes, rales, or rhonchi. ABDOMEN: Bowel sounds are positive. Soft, nontender and nondistended. No hepatosplenomegaly. No rebound and no guarding EXTREMITIES: No cyanosis, clubbing, or edema. NEUROLOGIC: Patient is alert, awake, oriented x0. No facial asymmetry. Tongue is midline. No uvula deviation. PSYCHIATRIC: Unable to do a full psychiatric evaluation. GENITOURINARY: No CVA tenderness. VASCULAR: 2+ pulses in the carotid pulses and pedal pulses. SKIN: No erythema or nodules SPINE: Shows normal curvature. LABORATORY DATA: Labs have been reviewed. White count 4, hemoglobin 13.5. Sodium is 143, potassium 4.3. His urine shows esterase is small. Rest of the urine is negative. ASSESSMENT: 1. Delirium. 2. Parkinson's. 3. 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 4. Hypothyroidism. 5. Alzheimer's dementia. 6. Dyslipidemia. 7. Degenerative joint disease. PLAN: The patient is currently comfortable. She was brought in as an observation. She had a CT of the head done that did not show any significant abnormalities, she has not had any acute intracranial hemorrhage. The patient was continued on her home medication. I did speak to the patient's daughter to give an update on the patient's diagnosis and plan of care. She had been started on antibiotics, but did not have signs and symptoms of urinary tract infection. The delirium was not felt to be secondary to infection. The patient is going to be discharged back to [facility]. I did also speak to the patient's daughter regarding retirement care placement and possible 24-hour care. She states she is not able to afford 24-hour care at home and I did speak to [facility] intermediate regarding the patient requiring termite helper care. Tommie Wallace MD
== END 2018-03-14 17:55 ==
LOC: ED 20:08 → ERH 22:33 → 5RSO 23:21
PROVIDERS: ADMIT Internal Medicine Nephrology; ATTEND Internal Medicine Nephrology
DX: R41.0 Disorientation, unspecified (principal); N39.0 Urinary tract infection, site not specified; M79.7 Fibromyalgia; E03.9 Hypothyroidism, unspecified; G30.9 Alzheimer's disease, unspecified; G20 Parkinson's disease; F02.80 Dementia in other diseases classified elsewhere, unspecified severity, without behavioral disturbance, psychotic disturbance, mood disturbance, and anxiety; M19.90 Unspecified osteoarthritis, unspecified site; I10 Essential (primary) hypertension; E78.5 Hyperlipidemia, unspecified; K21.9 Gastro-esophageal reflux disease without esophagitis; K57.90 Diverticulosis of intestine, part unspecified, without perforation or abscess without bleeding; Z88.0 Allergy status to penicillin; Z79.82 Long term (current) use of aspirin; Z79.899 Other long term (current) drug therapy; Z86.73 Personal history of transient ischemic attack (TIA), and cerebral infarction without residual deficits
CPT/HCPCS: 70450; 80053; 81001; 82948; 83735; 84484; 85025; 87086; 93005; 96365; 99285; G0378